=== PATIENT | female | born 1960 | race Caucasian/White ===

== ENCOUNTER → 2017-03-11 | Outpatient (CLI) | payer OTHER ==
--- NOTE | ~2017-03-11 | MY11 ---
[facility] A Service of [facility] RADIOLOGY TEXT RESULTS PATIENT: RICHARD CASAS [place] [facility] [place] 58 UNIT #: [id number] AGE: [address]: Lizeth Dobbins APRN SEX: F ORDER DR: [id number] [address] [id number] P MR#: [id number] Acc #: [id number] NAME: RICHARD CASAS : 1960 SEX: F STUDY DATE/TIME: 03/11/2017 9:41 [place] [facility] [place]: STUDY DESCRIPTION: MY Mammogram Screening Dig David Attending Physician: Lizeth Dobbins A.P.R.N. Ordering Physician: Lizeth Dobbins A.P.R.N. Primary Care Physician: Belinda Ko M.D. MEDICAL IMAGING REPORT This report is preliminary unless electronic signature is present. EXAM Bilateral digital screening mammogram with CAD. COMPARISON None available. Patient was not sure of when or where prior mammograms were performed. This will therefore serve as the patient's effective baseline exam. INDICATIONS Breast cancer screening. 57-year-old asymptomatic female with no personal or family history of breast cancer. FINDINGS Breasts are almost entirely fatty. There are no suspicious findings in either breast. IMPRESSION No mammographic evidence of malignancy. Continued annual screening mammography and clinical breast exam are recommended. Patients over the age of 40 are entered into a reminder system with target due date for the next mammogram. A result letter will also be sent to the patient. BIRADS: 1 Negative Dictated by... Maikol Dunaway M.D. THIS IS AN ELECTRONICALLY VERIFIED REPORT [facility] A Service [facility] RADIOLOGY TEXT RESULTS PATIENT: RICHARD CASAS [place] [facility] [place] 58 UNIT #: [id number] AGE: [address]: Lizeth Dbobins APRN SEX: F ORDER DR: Maikol Dunaway M.D. at 03/13/2017 10:40 AM ROB/hari TD: 03/11/2017 11:40 JOB #: [id number] MEDICAL IMAGING REPORT Page 1 of 1
== END | disposition home or self-care (01) ==
LOC: SMAM 07:27
DX: Z12.31 Encounter for screening mammogram for malignant neoplasm of breast (principal)
CPT/HCPCS: G0202